=== PATIENT | female | born 1945 | race Caucasian/White ===

== ENCOUNTER 2016-06-23 16:36 | Emergency (ER) | payer MEDICARE ==
--- NOTE | 2016-06-25 16:08 | ER ---
ADMIT: 06/23/2016 RM/LOC: ER [facility] MR#: [id number] [facility] [address] [place] [id number] JOZEF MANTILLA [address] [place] [id number] Emergency Room Report SEX: F AGE: 71 : 1945 DATE: 06/23/2016 TIME: 1636 hours. Please refer to my T-sheet for complete H and P. HISTORY OF PRESENT ILLNESS: Briefly, the patient is a 71-year-old, comes in with left arm pain, started yesterday. No recent cold or cough. She felt little short of breath with it. It kind of comes and goes. She rates it 5/10. She actually went for a long walk and when walk, she had no pain whatsoever. Nothing has made it worse. It just come and goes. She had an echo year go and an EKG. She has been having some symptoms a kind of a dyspnea on exertion but none of that today, just this left arm does hurt. No major concern, did not take anything for it, came in for evaluation. PHYSICAL EXAMINATION: VITAL SIGNS: Blood pressure 170/97, pulse 104, respirations 13, temp 99.3, saturating 98%. GENERAL: No acute distress. HEENT: Grossly normal. LUNGS: Clear. HEART: Regular. ABDOMEN: Soft. SKIN: No rash. NEURO: She is a little bit anxious, but nonfocal. EMERGENCY DEPARTMENT COURSE: I gave her Ativan 1 mg IM. Her EKG was sinus rhythm, rate 93, no changes. Chest x-ray was negative. CBC, chemistries, and troponin were all negative. She felt much better after Ativan symptoms completely resolved. I had a long discussion with her. She was ready for discharge. ASSESSMENT: 1. Atypical chest pain. 2. Anxiety. PLAN: Continue to use her Valium as needed. I am going to start her on a baby aspirin a day. I want her to see Dr. Alves this week and return if problems. Spencer Marcos MD/ cody JOB #: [id number] CC: Spencer Marcos MD, Attending Physician Earl Feliz MD, Family Physician
== END 2016-06-23 18:25 | disposition home or self-care (01) ==
LOC: ER 16:36
DX: R07.89 Other chest pain (principal); F41.9 Anxiety disorder, unspecified; Z88.8 Allergy status to other drugs, medicaments and biological substances; Z90.710 Acquired absence of both cervix and uterus